=== PATIENT | female | born 1985 ===

== ENCOUNTER 2017-08-22 13:56 | Emergency (ER) | payer OTHER ==
[2017-08-22 14:01] VITALS: BP 122/79; PULSE 89; RESP 16; TEMP 98.6; O2SAT 100
[2017-08-22 15:19] LABS: SQUAMOUS EPITHIAL 22 /hpf (0-5); URINE BACTERIA MOD (<OCC); URINE BILIRUBIN NEGATIVE (NEGATIVE); URINE BLOOD MODERATE (NEGATIVE); URINE CLARITY CLOUDY (Clear); URINE COLOR YELLOW (YELLOW); URINE GLUCOSE (UA) NEG (Normal); URINE LEUKOCYTE ESTERASE MOD Leu/uL (Negative); URINE NITRATE NEGATIVE (NEGATIVE); URINE PROTEIN NEGATIVE (NEGATIVE); URINE UROBILINOGEN 0.2-1.0 mg/dL (0.2-1.0)
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
--- NOTE | 2017-08-22 18:09 | RAD ---
PROCEDURE: Radiographs of the Lumbar Spine. HISTORY: LOWER BACK PAIN COMPARISON: No prior. FINDINGS: BONES: Lower thoracic upper lumbar levoscoliotic deformity is questioned versus splinting. No destructive bony lesions identified and there is no fracture identified either. Straightening of the lumbar lordotic curvature is noted. Evaluation of L5-S1 is limited but may indicate disc height loss here. Remaining intervertebral disc spaces are normal in height. No vertebral body height loss identified throughout the lumbar spine. No spondylolisthesis. DISC SPACES: As above. OTHER FINDINGS: None. IMPRESSION: No fracture or spondylolisthesis identified. Potential levoscoliotic thoracolumbar deformity versus splinting. Straightened lumbar curvature also noted (AP direction). Further characterization by MRI can be performed if clinically warranted.
[2017-08-22] MEDS ORDERED: Morphine 4 MG/ML VIAL IV ONE (18:16)
[2017-08-22] MEDS ORDERED: Morphine 4 MG/ML VIAL ONE (18:39)
[2017-08-22] MEDS ORDERED: Sodium Chloride 0.9% 50 ML IV ONE (21:10)
[2017-08-22] MEDS ORDERED: Iohexol 300 100 ML IJ ONE (21:10)
[2017-08-22 21:38] LABS: BASO # 0.1 K/uL (0.0-0.2); BASO % 0.9 % (0.0-2.0); EOS # 0.2 K/uL (0.0-0.7); EOS % 1.3 % (0.0-4.0); HEMOGLOBIN 12.4 g/dL (12.0-16.0); LYMPH # 3.9 K/uL (1.0-4.3); LYMPH % 31.8 % (20.0-40.0); MEAN CORPUSCULAR HEMOGLOBIN 28.2 pg (27.0-31.0); MEAN CORPUSCULAR HGB CONC 32.1 g/dL (33.0-37.0); MEAN PLATELET VOLUME 9.1 fl (7.2-11.7); MONO # 0.8 K/uL (0.0-0.8); MONO % 6.9 % (0.0-10.0); NEUT # 7.2 K/uL (1.8-7.0); NEUT % 59.1 % (50.0-75.0); NRBC % 0.1 % (0.0-0.0); RBC 4.38 Mil/uL (3.80-5.20); RED CELL DISTRIBUTION WIDTH 12.7 % (11.5-14.5); WHITE BLOOD COUNT 12.2 K/uL (4.8-10.8)
[2017-08-22 21:50] LABS: BLOOD UREA NITROGEN 16 mg/dl (7-17); CALCIUM 9.8 mg/dL (8.4-10.2); GFR AFRICAN-AMERICAN > 60; GFR NON-AFRICAN AMERICAN > 60
--- NOTE | 2017-08-22 23:31 | CT ---
EXAM: CT Lumbar Spine With Intravenous Contrast EXAM DATE/TIME: 08/22/2017 8:15 PM CLINICAL HISTORY: 32 years old, female; Pain; Low back pain; Patient HX: HX of herniated disc; Additional info: Severe lower back pain TECHNIQUE: Axial computed tomography images of the lumbar spine with intravenous contrast. All CT scans at this facility use one or more dose reduction techniques, viz.: automated exposure control; ma/kV adjustment per patient size (including targeted exams where dose is matched to indication; i.e. head); or iterative reconstruction technique. Coronal and sagittal reformatted images were created and reviewed. CONTRAST: 95 mL of [id number] administered intravenously. COMPARISON: CR - LS SPINE AP/LAT 2017-08-22 17:21 FINDINGS: Vertebrae: Visualized vertebral bodies are normal in height and alignment. Posterior elements are intact at all levels. There are no fractures there is minimal spondylosis at L3 or. There is mild disc space narrowing L5-S1 greatest posteriorly. There is mild posterior disc space narrowing no pre-4 and L4-L5. There is disc bulging greatest at L4/L5. There is mild mass effect on the thecal sac. Facet joints align anatomically. Sacroiliac joints are patent. Discs/spinal canal/neural foramina: See above. Soft tissues: Psoas and paraspinous muscles are symmetric. Retroperitoneal space: No acute abnormalities are seen in the retroperitoneum area and IMPRESSION: Disc bulging greatest at L4/5 with mild mass effect on the thecal sac; disc space narrowing as described above; no fracture Additional nonemergent findings as described above.
--- NOTE | 2017-08-22 23:56 | ED PDOC ---
- Laboratory Results Result Diagrams: 08/22/17 21:28 08/22/17 21:28 - ECG O2 Sat by Pulse Oximetry: 100 (RA) Pulse Ox Interpretation: Normal Medical Decision Making Medical Decision Making: Transfer of care endorsed by Dr. Dorsey pending reevaluation. Patient was unable to get out of bed when discharged earlier by Dr. Dorsey. Complained of continued pain in low lumbar spine. Paravetebral spine pain with no midline tenderness, no sensory deficits, no urinary symptoms or loss of bladder control. A CT was done to rule out epidural abscess or other pathology. After patient was given Dilaudid and Toradol she was able to ambulate. Pain is still present but improved. CT Lumbar Spine FINDINGS: Vertebrae: Visualized vertebral bodies are normal in height and alignment. Posterior elements are intact at all levels. There are no fractures there is minimal spondylosis at L3 or. There is mild disc space narrowing L5-S1 greatest posteriorly. There is mild posterior disc space narrowing no pre-4 and L4-L5. There is disc bulging greatest at L4/L5. There is mild mass effect on the thecal sac. Facet joints align anatomically. Sacroiliac joints are patent. Discs/spinal canal/neural foramina: See above. Soft tissues: Psoas and paraspinous muscles are symmetric. Retroperitoneal space: No acute abnormalities are seen in the retroperitoneum area and IMPRESSION: Disc bulging greatest at L4/5 with mild mass effect on the thecal sac; disc space narrowing as described above; no fracture Additional nonemergent findings as described above. Patient is feeling better, able to walk independently, and will be discharged home with Tramadol and Flexeril. Requires no further treatment in the ED. Caution advised for use of Tramadol because it is a controlled substance. Patient was advised to only use when necessary and to not abuse medications. Return to ED if symptoms persist or worsen. Scribe Attestation: Documented by Bisi Zaragoza, acting as a scribe for Dain Gardner MD Provider Scribe Attestation: All medical record entries made by the Scribe were at my direction and personally dictated by me. I have reviewed the chart and agree that the record accurately reflects my personal performance of the history, physical exam, medical decision making, and the department course for this patient. I have also personally directed, reviewed, and agree with the discharge instructions and disposition. Disposition - Clinical Impression Clinical Impression: Acute back pain, UTI (urinary tract infection) - POA Present On Arrival: None - Disposition Referrals: [facility] [Outside] Shelbie Vega MD [Staff Provider] - Disposition: Routine/Home Disposition Time: 00:00 Condition: STABLE Additional Instructions: FOLLOW UP WITH ORTHOPEDIST IN 1-2 DAYS RETURN TO THE ED WITH ANY WORSENING OR CONCERNING SYMPTOMS Prescriptions: Cyclobenzaprine [Cyclobenzaprine HCl] 10 mg PO BID #15 tab Ibuprofen [Motrin] 600 mg PO Q6H PRN #20 tab PRN Reason: Pain, Moderate (4-7) Nitrofurantoin Macrocrystals [Macrobid] 100 mg PO BID #14 cap traMADol [Ultram] 50 mg PO Q6 #12 tab Instructions: Urinary Tract Infection in Women (ED), Narcotic Pain Management ( ED), Back Pain (ED) Forms: [employer] (Guatemalan), [facility] School/Work Excuse Print Language: UPPER SORBIAN
== END 2017-08-23 00:34 | disposition home or self-care (01) ==
LOC: H.ER 13:56
DX: N39.0 Urinary tract infection, site not specified (principal); M51.26 Other intervertebral disc displacement, lumbar region
CPT/HCPCS: 72100; 72132; 80048; 81003; 81025; 85025; 87086; 96372; 96374; 96375; 99283; J1170; J1885; J2270; Q9967